=== PATIENT | male | born 1945 | race Caucasian/White ===

== ENCOUNTER 2017-07-13 11:55 | Emergency (ER) | payer MEDICARE, BC ==
[2017-07-13] MEDS ORDERED: Sodium Chloride 0.9% 10 ML Syringe FLUSH PRN (12:05)
[2017-07-13] MEDS ORDERED: Sodium Chloride 0.9% 2.5 ML Syringe FLUSH PRN (12:05)
--- NOTE | 2017-07-13 12:08 | EDM.PDOC ---
ED HPI GENERAL MEDICAL PROBLEM - General Chief Complaint: Chest Pain Stated Complaint: SOB Time Seen by Provider: 07/13/17 11:57 Source of Information: Reports: Patient History Limitations: Reports: No Limitations - History of Present Illness INITIAL COMMENTS - FREE TEXT/NARRATIVE: History of present illness: []Complains of substernal chest pressure and shortness of breath for one week and is progressively worsening. Patient has had his current pacemaker for 16 years. He was told that the battery is just about . Patient denies any sweating, dizziness or syncope but occasionally gets lightheaded. Review of systems: As per history of present illness and below otherwise all systems reviewed and negative. Past medical history: As per history of present illness and as reviewed below otherwise noncontributory. Surgical history: As per history of present illness and as reviewed below otherwise noncontributory. Social history: No reported history of drug or alcohol abuse. Family history: As per history of present illness and as reviewed below otherwise noncontributory. Physical exam: General: Well developed, well nourished in NAD HEENT: Atraumatic, normocephalic, pupils reactive, negative for conjunctival pallor or scleral icterus, mucous membranes moist, throat clear, neck supple, nontender, trachea midline. Lungs: Clear to auscultation, breath sounds equal bilaterally, no rales chest nontender. Heart: S1S2, regular, negative for clicks, rubs, or JVD. No edema Abdomen: Soft, nondistended, nontender. Negative for masses or hepatosplenomegaly. Negative for costovertebral tenderness. Pelvis: Stable nontender. Genitourinary: Deferred. Rectal: Deferred. Extremities: Atraumatic, negative for cords or calf pain. Neurovascular unremarkable. Neuro: Awake, alert, oriented. Cranial nerves II through XII unremarkable. Cerebellum unremarkable. Motor and sensory unremarkable throughout. Exam nonfocal. Diagnostics: []EKG shows a rate of 65 with a pacer and its elective replacement interval. After having his EKG evaluated by Yasmin at his salvager helper's office patient is going to be seeing his salvager helper on July 16 at 11 AM. Therapeutics: [] Impression: []Chest pressure, pacemaker on residual Plan: []Follow-up with Dr. Jones on July 16 at [address] [facility] Definitive disposition and diagnosis as appropriate pending reevaluation and review of above. Middle Chest Pain Score (Numeric/FACES): 6 - Related Data Allergies Allergy/AdvReac Type Severity Reaction Status Date / Time No Known Allergies Allergy Verified 07/13/17 12:06 Home Meds: Home Meds FLUoxetine [PROzac] 1 cap PO DAILY 03/07/15 [History] Insulin Aspart [NovoLOG] 1 dose SQ TID 03/07/15 [History] Insulin Glarg,Human.Rec.Analog [LantUS] 1 dose SQ BID 03/07/15 [History] Metoprolol Succinate [Toprol XL] 1 tab PO BID 03/07/15 [History] Omeprazole 1 cap PO BID 03/07/15 [History] Ramipril [Altace] 1 cap PO DAILY 03/07/15 [History] atorvaSTATin [Lipitor] 1 tab PO DAILY 03/07/15 [History] metFORMIN HCl [Metformin HCl ER] 2,000 mg PO DAILY 07/13/17 [History] Past Medical History Other Cardiovascular History: Sic Sinus Rhythm Other Gastrointestinal History: Reflux - Past Surgical History Other HEENT Surgeries/Procedures: Nasal polyp removal Social & Family History - Tobacco Use Smoking Status *Q: Former Smoker Years of Tobacco use: 12 Used Tobacco, but Quit: Yes Month Tobacco Last Used: 08/1978 - Recreational Drug Use Recreational Drug Use: No ED ROS GENERAL - Review of Systems Review Of Systems: See Below (See history of present illness) ED EXAM, GENERAL - Physical Exam Exam: See Below (See history of present illness) Course - Vital Signs Last Recorded V/S: Last Vital Signs Temp 96.7 F 07/13/17 12:03 Pulse 66 07/13/17 12:03 Resp 18 07/13/17 12:03 BP 149/99 H 07/13/17 12:03 Pulse Ox 99 07/13/17 12:03 - Orders/Labs/Meds Orders: Active Orders 24 hr Category Date Time Status Ambulate [RC] ASDIRECTED Care 07/13/17 12:55 Inactive EKG Documentation Completion [RC] STAT Care 07/13/17 12:04 Active Sodium Chloride 0.9% [Saline Flush] Med 07/13/17 12:05 Active 10 ml FLUSH ASDIRECTED PRN Sodium Chloride 0.9% [Saline Flush] Med 07/13/17 12:05 Active 2.5 ml FLUSH ASDIRECTED PRN Saline Lock Insert [OM.PC] Stat Oth 07/13/17 12:04 Ordered Medication Orders Sodium Chloride (Saline Flush) 10 ml FLUSH ASDIRECTED PRN PRN Reason: Keep Vein Open Sodium Chloride (Saline Flush) 2.5 ml FLUSH ASDIRECTED PRN PRN Reason: Keep Vein Open Labs: Laboratory Tests 07/13/17 07/13/17 07/13/17 Range/Units 12:12 12:12 12:12 WBC 11.39 H (4.0-11.0) K/uL RBC 4.64 (4.50-5.90) M/uL Hgb 13.9 (13.0-17.0) g/dL Hct 41.3 (38.0-50.0) % MCV 89.0 (80.0-98.0) fL MCH 30.0 (27.0-32.0) pg MCHC 33.7 (31.0-37.0) g/dL RDW Std Deviation 43.9 (28.0-62.0) fl RDW Coeff of Renee 14 (11.0-15.0) % Plt Count 142 L (150-400) K/uL MPV 9.90 (7.40-12.00) fL Neut % (Auto) 67.8 (48.0-80.0) % Lymph % (Auto) 23.7 (16.0-40.0) % [place] % (Auto) 6.1 (0.0-15.0) % Eos % (Auto) 2.1 (0.0-7.0) % Baso % (Auto) 0.3 (0.0-1.5) % Neut # (Auto) 7.7 H (1.4-5.7) K/uL Lymph # (Auto) 2.7 H (0.6-2.4) K/uL Sen[place] # (Auto) 0.7 (0.0-0.8) K/uL Eos # (Auto) 0.2 (0.0-0.7) K/uL Baso # (Auto) 0.0 (0.0-0.1) K/uL Nucleated RBC % 0.0 /100WBC Nucleated RBCs # 0 K/uL Sodium 135 L (136-146) mmol/L Potassium 4.5 (3.5-5.1) mmol/L Chloride 106 (98-110) mmol/L Carbon Dioxide 20 L (21-31) mmol/L BUN 19 (6.0-23.0) mg/dL Creatinine 1.0 (0.6-1.5) mg/dL Est Cr Clr Drug Dosing 78.79 mL/min Estimated GFR (MDRD) > 60.0 ml/min Glucose 170 H (60-110) mg/dL Calcium 9.2 (8.8-10.8) mg/dL Total Bilirubin 0.7 (0.1-1.5) mg/dL AST 20 (5-40) IU/L ALT 20 (8-54) IU/L Alkaline Phosphatase 94 (40-150) Troponin I < 0.10 (0.0-0.29) NG/ML B-Natriuretic Peptide 239 H (<100) PG/ML Total Protein 7.0 (6.0-8.0) g/dL Albumin 3.9 (3.4-4.8) g/dL Globulin 3.1 (2.0-3.5) g/dL Albumin/Globulin Ratio 1.3 (1.3-2.8) Meds: Medications Generic Name Dose Route Start Last Admin Trade Name Freq PRN Reason Stop Dose Admin Sodium Chloride 10 ml 07/13/17 12:05 Saline Flush FLUSH ASDIRECTED PRN Keep Vein Open Sodium Chloride 2.5 ml 07/13/17 12:05 Saline Flush FLUSH ASDIRECTED PRN Keep Vein Open Discontinued Medications Generic Name Dose Route Start Last Admin Trade Name Freq PRN Reason Stop Dose Admin Aspirin 324 mg 07/13/17 13:22 Aspirin PO 07/13/17 13:23 ONETIME ONE Departure - Departure Time of Disposition: 13:36 Disposition: Home, Self-Care 01 Condition: Good Clinical Impression: Chest pressure Referrals: Wali Finley MD [Primary Care Provider] - Forms: ED Department Discharge Additional Instructions: The following information is given to patients seen in the emergency department who are being discharged to home. This information is to outline your options for follow-up care. We provide all patients seen in our emergency department with a follow-up referral. The need for follow-up, as well as the timing and circumstances, are variable depending upon the specifics of your emergency department visit. If you don't have a primary care physician on staff, we will provide you with a referral. We always advise you to contact your personal physician following an emergency department visit to inform them of the circumstance of the visit and for follow-up with them and/or the need for any referrals to a consulting specialist. The emergency department will also refer you to a specialist when appropriate. This referral assures that you have the opportunity for follow-up care with a specialist. All of these measure are taken in an effort to provide you with optimal care, which includes your follow-up. Under all circumstances we always encourage you to contact your private physician who remains a resource for coordinating your care. When calling for follow-up care, please make the office aware that this follow-up is from your recent emergency room visit. If for any reason you are refused follow-up, please contact the [facility] Emergency Department at and asked to speak to the emergency department charge nurse. Follow-up with Dr. Jones at 11 AM on SundayJuly 16 [facility]. Return to this ER time before then if any symptoms worsen or change. Tinea regular meds. - My Orders Last 24 Hours: My Active Orders 07/13/17 12:04 EKG Documentation Completion [RC] STAT Saline Lock Insert [OM.PC] Stat 07/13/17 12:05 Sodium Chloride 0.9% [Saline Flush] 10 ml FLUSH ASDIRECTED PRN Sodium Chloride 0.9% [Saline Flush] 2.5 ml FLUSH ASDIRECTED PRN 07/13/17 12:55 Ambulate [RC] ASDIRECTED - Assessment/Plan Last 24 Hours: My Active Orders 07/13/17 12:04 EKG Documentation Completion [RC] STAT Saline Lock Insert [OM.PC] Stat 07/13/17 12:05 Sodium Chloride 0.9% [Saline Flush] 10 ml FLUSH ASDIRECTED PRN Sodium Chloride 0.9% [Saline Flush] 2.5 ml FLUSH ASDIRECTED PRN 07/13/17 12:55 Ambulate [RC] ASDIRECTED
--- NOTE | 2017-07-13 12:36 | CR ---
EXAMINATION: Portable chest radiograph. HISTORY: Shortness of breath. FINDINGS: The trachea is midline. The cardiomediastinal silhouette is within normal limits. No pulmonary infilt rates, effusions or pneumothorax. There is a left-sided pacemaker. Osseous structures appear unremarkable. IMPRESSION: No acute cardiopulmonary process.
[2017-07-13 12:45] LABS: CHLORIDE,CL 106 mmol/L (98-110); SODIUM,NA 135 mmol/L (136-146)
[2017-07-13] MEDS ORDERED: Aspirin 81 MG Tab.Chew PO ONE (13:22)
[2017-07-13 13:53] VITALS: BP 127/91
== END 2017-07-13 13:49 | disposition home or self-care (01) ==
LOC: MW.ED 11:55
DX: R07.89 Other chest pain (principal); Z87.891 Personal history of nicotine dependence; Z79.4 Long term (current) use of insulin; Z79.899 Other long term (current) drug therapy; Z95.0 Presence of cardiac pacemaker
CPT/HCPCS: 36415; 71010; 71010-26; 80053; 83880; 84484; 85025; 93005; 99283; 99285-25

== ENCOUNTER 2020-11-05 06:31 | Day surgery (SDC) | payer MEDICARE, BC ==
[~2020-11-05 06:31] MED LIST: Lactated Ringers 1,000 ML IV SCH; cefOXitin 2 GM in Premix Bag 1 BAG IV ONE
[2020-11-05] MEDS ORDERED: Propofol 200 MG/20 ML SDV ONE (07:08)
[2020-11-05] MEDS ORDERED: Midazolam 1 MG/ML 2 ML SDV ONE (07:09)
--- NOTE | 2020-11-05 07:25 | PCM.PREANE ---
Preanesthetic Assessment - Anesthesia/Transfusion/Family Hx Anesthesia History: Prior Anesthesia Without Reaction Family History of Anesthesia Reaction: No Transfusion History: No Prior Transfusion(s) Intubation History: Unknown - Review of Systems General: No Symptoms Pulmonary: No Symptoms Cardiovascular: No Symptoms Gastrointestinal: Constipation, Other (colonoscopy 11 years ago was normal) Neurological: No Symptoms Other: Reports: None - Physical Assessment Vital Signs: Last Vital Signs Temp 36.1 C 11/05/20 06:45 Pulse 63 11/05/20 06:45 Resp 16 11/05/20 06:45 BP 130/79 11/05/20 06:45 Pulse Ox 96 11/05/20 06:45 Height: 6 ft 1 in Weight: 101.151 kg ASA Class: 3 Mental Status: Alert & Oriented x3 Airway Class: Mallampati = 2 Dentition: Reports: Normal Dentition, Bridge (upper front (5 teeth) fixed) Thyro-Mental Finger Breadths: 3 Mouth Opening Finger Breadths: 2 ROM/Head Extension: Limited/Partial Lungs: Clear to Auscultation, Normal Respiratory Effort Cardiovascular: Regular Rate, Regular Rhythm - Lab Values: Laboratory Last Values POC Glucose 100 mg/dL (60-110) 11/05/20 06:49 - Allergies Allergies/Adverse Reactions: Allergies Allergy/AdvReac Type Severity Reaction Status Date / Time No Known Allergies Allergy Verified 11/01/20 09:59 - Blood Blood Available: No - Anesthesia Plan Pre-Op Medication Ordered: None - Acknowledgements Anesthesia Type Planned: MAC Pt an Appropriate Candidate for the Planned Anesthesia: Yes Alternatives and Risks of Anesthesia Discussed w Pt/Guardian: Yes Pt/Guardian Understands and Agrees with Anesthesia Plan: Yes PreAnesthesia Questionnaire HEENT History: Reports: Other (See Below) Other HEENT History: wears glasses Cardiovascular History: Reports: High Cholesterol, Hypertension, Pacemaker Other Cardiovascular History: hard pacemaker checked 2 weeks ago, states he was told it should be good for another 3 years Respiratory History: Reports: Sleep Apnea Other Respiratory History: diagnosed with sleep apnea but does not use a CPAP, states was unable to tolerate wearing the mask Gastrointestinal History: Reports: GERD, Hiatal Hernia Genitourinary History: Reports: Renal Calculus Musculoskeletal History: Reports: None Neurological History: Reports: None Psychiatric History: Reports: None, Depression Endocrine/Metabolic History: Reports: Diabetes, Type II, IDDM Hematologic History: Reports: None Immunologic History: Reports: None Oncologic (Cancer) History: Reports: None Dermatologic History: Reports: None - Infectious Disease History Infectious Disease History: Reports: Chicken Pox, Measles, Mumps, Rubella - Past Surgical History Head Surgeries/Procedures: Reports: None HEENT Surgical History: Reports: Other (See Below) Other HEENT Surgeries/Procedures: Nasal polyp removal Cardiovascular Surgical History: Reports: Other (See Below) Other Cardiovascular Surgeries/Procedures: pacemaker placement Respiratory Surgical History: Reports: None GI Surgical History: Reports: Colonoscopy Male Surgical History: Reports: Other (See Below) Other Male Surgeries/Procedures: hydrocele repair Endocrine Surgical History: Reports: None Neurological Surgical History: Reports: None Musculoskeletal Surgical History: Reports: Arthroscopic Knee, Other (See Below) Other Musculoskeletal Surgeries/Procedures:: left foot fusion Oncologic Surgical History: Reports: None Dermatological Surgical History: Reports: None - SUBSTANCE USE Tobacco Use Status *Q: Former Tobacco User Tobacco Use Within Last Twelve Months: No - HOME MEDS Home Medications: Home Meds Metoprolol Succinate [Toprol XL] 25 mg PO BID 03/07/15 [History] Omeprazole 20 mg PO DAILY 03/07/15 [History] Ramipril [Altace] 10 mg PO DAILY 03/07/15 [History] atorvaSTATin [Lipitor] 80 mg PO DAILY 03/07/15 [History] metFORMIN HCl [Metformin HCl ER] 2,000 mg PO DAILY 07/13/17 [History] Aspirin [Adult Aspirin Regimen] 81 mg PO DAILY 11/01/20 [History] Fluticasone Propionate [Flonase Allergy Relief] 1 spray NASBOTH ASDIRECTED PRN 11/01/20 [History] Insulin Isophane NPH, Human [NovoLIN N] 25 units SUBCUT ACBREAKFASTANDBED 11/01/20 [History] Insulin Regular, Human [NovoLIN R] 1 injection SUBCUT ASDIRECTED 11/01/20 [History] Multivitamin 1 tab PO DAILY 11/01/20 [History] Meigs-3/DHA/Epa/Fish Oil [Fish Oil 1,000 mg Softgel] 1,000 mg PO DAILY 11/01/20 [History] - CURRENT (IN HOUSE) MEDS Current Meds: Current Medications Lactated Ringer's (Ringers, Lactated) 1,000 mls @ 125 mls/hr IV ASDIRECTED JEAN MARIE Last Admin: 11/05/20 06:56 Dose: 125 mls/hr Documented by: Discontinued Medications Cefoxitin Sodium 2 gm/ Premix 50 mls @ 100 mls/hr IV ONETIME ONE Stop: 11/05/20 06:29 Midazolam HCl (Midazolam 1 Mg/Ml 2 Ml Sdv) Confirm Administered Dose 2 mg .ROUTE .STK-MED ONE Stop: 11/05/20 07:10 Propofol (Propofol 200 Mg/20 Ml Sdv) Confirm Administered Dose 600 mg .ROUTE .STK-MED ONE Stop: 11/05/20 07:09
[2020-11-05] MEDS ORDERED: cefOXitin 1 GM Vial ONE (07:29)
[2020-11-05] MEDS ORDERED: Water For Injection, Sterile 20 ML ONE (07:29)
--- NOTE | 2020-11-05 08:07 | PCM.OPNOTE ---
- General Post-Op/Procedure Note Date of Surgery/Procedure: 11/05/20 Operative Procedure(s): Colonoscopy with cold ascending colon polypectomy Pre Op Diagnosis: Change in bowel habits. Family history of colon cancer. Post-Op Diagnosis: Ascending colon polyp. Mild sigmoid diverticulosis. Anesthesia Technique: MAC (ASA III) Primary Surgeon: Perez Hernandez Notch Grinder: Rosa Weldon Condition: Good Free Text/Narrative:: DICTATION [id number] CPT CODE 99213
--- NOTE | 2020-11-05 08:14 | PCM.POSTAN ---
POST ANESTHESIA ASSESSMENT - MENTAL STATUS Mental Status: Alert, Oriented - VITAL SIGNS Vital Signs: Last Vital Signs Temp 36.1 C 11/05/20 06:45 Pulse 60 11/05/20 08:10 Resp 15 11/05/20 08:10 BP 101/64 11/05/20 08:10 Pulse Ox 95 11/05/20 08:10 - RESPIRATORY Respiratory Status: Respiratory Rate WNL, Airway Patent, O2 Saturation Stable - CARDIOVASCULAR CV Status: Pulse Rate WNL, Blood Pressure Stable - GASTROINTESTINAL GI Status: No Symptoms - PAIN Pain Score: 0 - POST OP HYDRATION Hydration Status: Adequate & Stable
[2020-11-05] MEDS ORDERED: Lactated Ringers 1,000 ML IV SCH (08:15)
[2020-11-05 08:39] VITALS: BP 108/63; PULSE 71
--- NOTE | 2020-11-05 09:13 | OR ---
SURGEON: Perez Hernandez M.D. DATE OF PROCEDURE: 11/05/2020 OPERATION PERFORMED: Colonoscopy with cold ascending colon polypectomy. PRIMARY SURGEON: Perez Hernandez M.D. BATCH MAKER: assistant dean: RONIT Adams student. ANESTHESIA: MAC. ASA CLASSIFICATION: III. PREOPERATIVE DIAGNOSIS: Change in bowel habits with family history of colon cancer. POSTOPERATIVE DIAGNOSES: 1. Ascending colon polyp. 2. Mild sigmoid diverticulosis. DESCRIPTION OF PROCEDURE: The patient was taken to the endoscopy room, positioned on the endoscopy table in the left lateral decubitus position. Time-out was called for appropriate identification of the patient and procedure. Monitored anesthesia care was provided. The colonoscope was inserted into the rectum and advanced with minimal difficulty to the cecum. The cecum was identified by internal landmarks and external pressure. The colonoscope was retroflexed to visualize the ascending colon from below, then straightened, and slowly withdrawn. One polyp was encountered in the ascending colon. This was removed with cold biopsy forceps and recovered. The remainder of the ascending colon, hepatic flexure, transverse colon, splenic flexure, and descending colon showed no tumors, polyps, diverticula, or angiodysplastic changes. A few small scattered diverticula were noted in the sigmoid colon. No stricture, spasm, or bleeding was noted. No polyps were encountered. The colonoscope was then withdrawn to the rectum and retroflexed to visualize the anal orifice from above. Again, no tumors or polyps were seen and there were no acute hemorrhoidal changes. The colonoscope was then straightened, the rectum aspirated, and the colonoscope removed. The patient tolerated the procedure well and was taken to recovery room in stable condition. DAVID / NIA /[id number] MIKE
--- NOTE | 2020-11-05 09:45 | PCM48HPAN ---
Post Anesthesia Note - EVALUATION WITHIN 48HRS OF ANESTHETIC Vital Signs in Normal Range: Yes Patient Participated in Evaluation: Yes Respiratory Function Stable: Yes Airway Patent: Yes Cardiovascular Function Stable: Yes Hydration Status Stable: Yes Pain Control Satisfactory: Yes Nausea and Vomiting Control Satisfactory: Yes Mental Status Recovered: Yes Vital Signs: Last Vital Signs Temp 36.2 C 11/05/20 08:12 Pulse 71 11/05/20 08:12 Resp 14 11/05/20 08:12 BP 108/63 11/05/20 08:12 Pulse Ox 93 L 11/05/20 08:12 - COMMENTS/OBSERVATIONS Free Text/Narrative:: No anesthesia problems
== END 2020-11-05 08:40 | disposition home or self-care (01) ==
LOC: MW.SDS 06:31
PROVIDERS: ATTEND Surgery
DX: K63.5 Polyp of colon (principal); K57.30 Diverticulosis of large intestine without perforation or abscess without bleeding; I10 Essential (primary) hypertension; E78.5 Hyperlipidemia, unspecified; E11.9 Type 2 diabetes mellitus without complications; Z79.82 Long term (current) use of aspirin; Z79.4 Long term (current) use of insulin; Z79.899 Other long term (current) drug therapy; Z87.891 Personal history of nicotine dependence; Z95.0 Presence of cardiac pacemaker; Z80.0 Family history of malignant neoplasm of digestive organs; Z98.890 Other specified postprocedural states
CPT/HCPCS: 45380; 82962; J0694; J2250; J2704; J7120; 00811; 88305